=== PATIENT | female | born 1985 | race American Indian/Alaskan Native ===

== ENCOUNTER 2019-05-24 01:35 | Emergency (ER) | payer OTHER ==
--- NOTE | 2019-05-24 02:48 | XRay Report ---
CHEST 2 VIEWS INDICATION / CLINICAL INFORMATION: Chest Pain. Headache with dizziness. COMPARISON: None available. FINDINGS: SUPPORT DEVICES: None. HEART / MEDIASTINUM: The heart size and pulmonary vasculature are normal. The aorta is normal in marilin kelvin. LUNGS / PLEURA: No significant pulmonary or pleural abnormality. No pneumothorax. ADDITIONAL FINDINGS: No significant additional findings. IMPRESSION: No acute findings. Signer Name: Ras Rhodes MD Signed: 05/24/2019 2:44 AM Workstation Name: [id number]
--- NOTE | 2019-05-24 06:30 | Emergency Department Report ---
ED Chest Pain HPI - General Chief Complaint: Chest Pain Stated Complaint: HEADACHE CHEST PAIN LIGHTHEADED DIZZY Time Seen by Provider: 05/24/19 06:01 Source: patient Mode of arrival: Ambulatory Limitations: No Limitations - History of Present Illness Initial Comments: 33-year-old female with no past medical history presents to ED with headache, chest pain, dizziness. Patient reports intermittent headache located on the top of her head over the last 3 days. Patient states this pain is usually immediately relieved with ibuprofen, but then returns. Patient denies any associated dizziness, nausea, vomiting, weakness or numbness with these headac hes. Patient states last night she was sitting in bed and began to feel tightness in her chest and lightheaded and dizzy, as if she was about to pass out. Patient denies any shortness of breath, leg pain or swelling. She currently denies any chest pain, and states she has only a very mild headache at this time. MD Complaint: chest pain -: Last night Onset: during rest Pain Location: substernal Pain Radiation: none Severity: moderate Severity scale (0 -10): 0 Quality: tightness Consistency: now resolved Improves With: nothing Worsens With: nothing re: denies: nausea, vomting, diaphoresis, dyspnea Other Symptoms: denies: cough, fever, leg swelling - Related Data On Oral Contraceptives: No Allergies Allergy/AdvReac Type Severity Reaction Status Date / Time No Known Allergies Allergy Unverified 05/24/19 01:44 Heart Score - HEART Score History: Slightly suspicious EKG: Normal Age: < 45 Risk factors: No known risk factors Troponin: < normal limit HEART Score: 0 - Critical Actions Critical Actions: 0-3 pts:0.9-1.7%risk of adverse cardiac event.Candidate for discharge ED Review of Systems ROS: Stated complaint: HEADACHE CHEST PAIN LIGHTHEADED DIZZY Other details as noted in HPI Comment: All other systems reviewed and negative Constitutional: denies: chills, fever Respiratory: denies: shortness of breath Cardiovascular: chest pain Gastrointestinal: denies: abdominal pain, nausea, vomiting Musculoskeletal: other (denies leg pain and swelling) Neurological: headache. denies: weakness, numbness, paresthesias ED Past Medical Hx - Social History Smoking Status: Never Smoker Substance Use Type: Alcohol ED Physical Exam - General Limitations: No Limitations General appearance: alert, in no apparent distress - Head Head exam: Present: atraumatic, normocephalic - Eye Eye exam: Present: normal appearance, PERRL, EOMI - ENT ENT exam: Present: mucous membranes moist - Neck Neck exam: Present: normal inspection, full ROM. Absent: meningismus - Respiratory Respiratory exam: Present: normal lung sounds bilaterally. Absent: respiratory distress, wheezes, rales, rhonchi - Cardiovascular Cardiovascular Exam: Present: regular rate, normal rhythm - GI/Abdominal GI/Abdominal exam: Present: soft. Absent: distended, tenderness - Extremities Exam Extremities exam: Present: normal inspection. Absent: pedal edema, calf tenderness - Neurological Exam Neurological exam: Present: alert, oriented X3, CN II-XII intact, normal gait. Absent: motor sensory deficit - Psychiatric Psychiatric exam: Present: normal affect, normal mood - Skin Skin exam: Present: warm, dry, intact, normal color ED Course Vital Signs 05/24/19 05/24/19 05/24/19 01:41 06:17 06:36 Temperature 98.3 F 98.4 F Pulse Rate 80 69 Respiratory 18 20 20 Rate Blood Pressure 117/77 Blood Pressure 114/79 [Left] O2 Sat by Pulse 99 99 99 Oximetry 05/24/19 07:22 Temperature Pulse Rate 69 Respiratory 14 Rate Blood Pressure Blood Pressure 106/65 [Left] O2 Sat by Pulse 100 Oximetry ED Medical Decision Making - Lab Data Result diagrams: 05/24/19 06:52 05/24/19 06:52 - EKG Data -: EKG Interpreted by [facility] EKG shows normal: sinus rhythm, axis, intervals, QRS complexes, ST-T waves - EKG Data Interpretation: no acute changes - Radiology Data Radiology results: report reviewed, image reviewed - Medical Decision Making - vitals, EKG, CXR normal - trop normal, D-Dimer slightly elevated - CTA Chest negative for PE or any other abnormality - pt feeling much better at this time - PCP f/u advised, return precautions given - Differential Diagnosis ACS, anxiety, PE Critical care attestation.: If time is entered above; I have spent that time in minutes in the direct care of this critically ill patient, excluding procedure time. ED Disposition Clinical Impression: Acute headache, Acute chest pain Disposition: - TO HOME OR SELFCARE Is pt being admited?: No Condition: Stable Instructions: Chest Pain (ED), Acute Headache (ED) Referrals: PRIMARY CARE, [Primary Care Provider] - 3-5 Days
[2019-05-24 07:02] LABS: HCG Qualitative,Urine Negative (Negative)
[2019-05-24 07:04] LABS: Bacteria,Urine 1+ /HPF (Negative); Bilirubin,Urine NEG (Negative); Blood,Urine LG (Negative); Color,Urine Yellow (Yellow); Mucus,Urine FEW /HPF; Protein,Urine <15 mg/dL mg/dL (Negative); RBC,Urine > 182.0 /HPF (0.0-6.0)
[2019-05-24 07:12] LABS: Basophils # (Auto) 0.1 K/mm3 (0.0-0.1); Basophils % (Auto) 2.6 % (0.0-1.8); Eosinophils # (Auto) 0.1 K/mm3 (0.0-0.4); Eosinophils % (Auto) 2.2 % (0.0-4.3); Hemoglobin 12.2 gm/dl (10.1-14.3); Lymphocytes # (Auto) 1.6 K/mm3 (1.2-5.4); Mean Corpuscular HGB Conc 33 % (30-34); Mean Corpuscular Volume 88 fl (79-97); Monocytes # (Auto) 0.2 K/mm3 (0.0-0.8); Monocytes % (Auto) 5.4 % (0.0-7.3); Platelet Count 282 K/mm3 (140-440); Red Blood Count 4.22 M/mm3 (3.65-5.03); Red Cell Distribution Width 13.4 % (13.2-15.2)
[2019-05-24 07:22] VITALS: BP 106/65
[2019-05-24 07:22] LABS: INR 1.04 (0.87-1.13)
[2019-05-24 07:32] LABS: BUN/Creatinine Ratio 13; Blood Urea Nitrogen 8 mg/dL (7-17); Calcium 9.3 mg/dL (8.4-10.2); Hemolysis Index 0
--- NOTE | 2019-05-24 09:40 | Cat Scan Report ---
CTA CHEST WITH IV CONTRAST INDICATION: chest pain. TECHNIQUE: Axial CT images were obtained through the chest after injection of IV contrast. 3 plane MIP reconstru ctions were produced. All CT scans at this location are performed using CT dose reduction for ALARA b y means of automated exposure control. COMPARISON: Chest radiograph earlier the same day FINDINGS: Pulmonary Arteries: No pulmonary emboli. Thoracic Aorta: No acute abnormality. Heart: Normal. Lungs: No acute air space or interstitial disease. Pleura: No pleural effusion. No pneumothorax. Lymph Nodes: No significant adenopathy. Additional Findings: None. Upper Abdomen: No acute findings. Skeletal Structures: No significant osseous abnormality. IMPRESSION: 1. No CT evidence for pulmonary embolism. 2. No acute findings. Signer Name: Aden Floyd MD Signed: 05/24/2019 9:36 AM Workstation Name: [id number]
== END 2019-05-24 10:07 | disposition home or self-care (01) ==
LOC: ED 01:35
DX: R07.89 Other chest pain (principal); R51 Headache
CPT/HCPCS: 36415; 71046; 71275; 80048; 81001; 81025; 84484; 85025; 85379; 85610; 85730; 93005; 93010; 99284; Q9967